=== PATIENT | female | born 1965 | race Hispanic/Latino ===

== ENCOUNTER 2017-12-06 08:26 | Outpatient (CLI) | payer OTHER ==
--- NOTE | 2017-12-06 14:11 | MMO ---
BILATERAL SCREENING MAMMOGRAMS: 12/06/17 Comparison made to exam of 2016 and 2017. Interpreted with computer aided detection. Scattered fibroglandular densities. No evidence of mass or distortion. No suspicious calcification. IMPRESSION: BIRADS 1: Negative Routine annual screening mammography (for women over age 40) POS: [facility]
== END 2017-12-06 08:27 | disposition home or self-care (01) ==
LOC: SCSMAMMO 08:26
PROVIDERS: ATTEND Internal Medicine
DX: Z12.31 Encounter for screening mammogram for malignant neoplasm of breast (principal)
CPT/HCPCS: 77067

== ENCOUNTER 2021-01-13 07:37 | Outpatient (CLI) | payer BC | END 2021-01-13 07:38 | disposition home or self-care (01) | LOC: BICULT 07:37 | PROVIDERS: ATTEND Internal Medicine Gastroenterology | DX: R94.5 Abnormal results of liver function studies (principal); K76.0 Fatty (change of) liver, not elsewhere classified | CPT/HCPCS: 76700 ==